=== PATIENT | female | born 1970 | race Caucasian/White ===

== ENCOUNTER 2017-02-04 08:51 | Emergency (ER) | payer BC, OTHER ==
[~2017-02-04] VITALS: Ht 165.1 cm; Wt 55.8 kg
[~2017-02-04 08:51] MED LIST: INSPMPNVLG; LEVOIUD INT UTER; MULTTAB58 PO
[2017-02-04 08:55] VITALS: TEMP 36.7; Ht 165.1 cm; Wt 55.8 kg
[2017-02-04] MEDS ORDERED: PRED20TA PO (09:40)
[2017-02-04] MEDS ORDERED: DEXAMETHASONE SOD INJ 10 MG/ML VIAL PO ONE (09:45)
[2017-02-04 09:56] VITALS: BP 116/77; PULSE 63; O2SAT 100
--- NOTE | 2017-02-04 16:37 | EMERGENCY ROOM VISIT NOTE ---
ED Visit Note First contact with patient: 09:09 CHIEF COMPLAINT: Skin problem. HISTORY OF PRESENT ILLNESS: Ms. Boggs is a 46-year-old white female who ambulates into the ED complaining of possible poison edita. Patient reports approximately one week ago she was picking strawberries behind her house and noted swelling and redness and a rash on both her hands and forearms. Over the last week this is spread and now includes her abdomen and legs. She reports that she has been using [id number] steroid cream and Benadryl cream without relief of her skin eruptions. Additionally she reports she has been using Benadryl with minimal relief of her itching. Associated with her skin eruption she does report she is having a mild burning sensation of the arms and in the area of her rash. She rates this discomfort 6/ 10. Her pain worsens with itching. She has not identified any alleviating factors related to the pain. She has not taken any medication for pain prior to arrival at the hospital. She denies any associated fevers, chills, sweats, upper respiratory tract symptoms, cough, wheezing, shortness of breath, sensations of throat swelling, voice changes, difficulty swallowing, decreased appetite, nausea/vomiting, extremity weakness/numbness/tingling. REVIEW OF SYSTEMS: As noted above in History of Present Illness; a body systems reviewed the patient and found to be negative unless noted above otherwise. PMH: Insulin-dependent diabetes, urinary tract infections, status post oophorectomy, bilateral mastectomy with recent reconstructive surgery. CURRENT MEDICATION: Insulin, multivitamins. ALLERGIES TO MEDICATION: Patient denies. SOCIAL HISTORY: Patient is not employed; she lives with her and feels safe in her home environment; she denies tobacco use and admits to alcohol use. PHYSICAL EXAM: Vital Signs: Date Time Temp Pulse Resp B/P (MAP) Pulse Ox O2 Delivery O2 Flow Rate FiO2 02/04/17 09:56 63 15 116/77 100 02/04/17 09:45 63 15 116/77 100 Room Air 02/04/17 08:55 36.7 78 16 114/75 99 Room Air GENERAL: 46-year-old female in mild distress due to symptoms, nontoxic-appearing , afebrile and hemodynamically stable. NEUROLOGICAL: Awake, alert and oriented to person, place and time. Answering questions appropriately and following commands. Normal gait. Good hand eye coordination. No focal motor or sensory deficits. SKIN: Warm, dry and pink. All Extremities: There is an erythematous linear eruptions on all the extremities. Some eruptions have small vesicles; predominantly on the hands, wrists, and volar aspect of the forearms. These areas are minimally warm to touch does not appear cellulitic. There is no lymphangitis. HEENT: Atraumatic and normocephalic. PERRLA. Sclera white and conjunctiva pink without drainage. No drainage from naris. Oral cavity moist and pink. Airway is patent. Pharynx is nonerythematous or edematous. Speech normal. No lymphadenopathy. No auditory or auscultatory stridor. THORAX: Lungs sounds are clear to auscultation and equal bilaterally with symmetrical chest wall. No wheezing, rales or rhonchi. ABDOMEN: Flat, soft and nontender. Positive bowel sounds in all quadrants. No guarding, rigidity or organomegaly. EXTREMITIES: Moves all extremities well on command and with purpose. All distal neurovascular statuses are intact and equal bilaterally. No calf tenderness or cords. ED COURSE: Patient is assessed as noted above. Patient's medication list was reviewed. Patient was given 10 mg of Decadron by mouth for her symptoms. Patient was educated about today's findings and instructed on her treatment plan ; she verbalizes understanding and agreement with this plan. CLINICAL IMPRESSION: Poison edita contact dermatitis. DISPOSITION: Patient discharged home in stable condition; prior to departure she was reassessed and subjectively reported she was pain-free but continued to have itching. PLAN: Patient was prescribed a prednisone taper. Patient was encouraged to use Benadryl and ranitidine and instructed on her use. Patient was encouraged to avoid hot baths and actually use ice bags over areas of severe itching. Patient was encouraged to follow-up with family physician for recheck when she returns from her upcoming trip for recheck. Patient was encouraged return to the ED for worsening symptoms, fevers, shortness of breath, sensations of throat swelling or any new/concerning symptoms.
== END 2017-02-04 09:57 | disposition home or self-care (01) ==
LOC: C.EDB 09:34
DX: L23.7 Allergic contact dermatitis due to plants, except food (principal); E11.9 Type 2 diabetes mellitus without complications; Z79.4 Long term (current) use of insulin; Z90.13 Acquired absence of bilateral breasts and nipples; Z90.721 Acquired absence of ovaries, unilateral; Z87.440 Personal history of urinary (tract) infections

== ENCOUNTER → 2017-08-18 | Outpatient (CLI) | payer BC ==
[~2017-08-18] MED LIST changes: -LEVOIUD INT UTER
== END | disposition home or self-care (01) ==
LOC: C.LAB 07:59
PROVIDERS: ATTEND Nutritionist
DX: R53.83 Other fatigue (principal)

== ENCOUNTER 2017-11-12 09:50 | Emergency (ER) | payer BC ==
[~2017-11-12] VITALS: Ht 165.1 cm; Wt 57.2 kg
[2017-11-12 09:55] VITALS: TEMP 36.5; Ht 165.1 cm; Wt 57.2 kg
[2017-11-12] MEDS ORDERED: KETOROLAC TROMETHAMINE 30 MG/ML VIAL IV STA (10:20)
--- NOTE | 2017-11-12 10:29 | EMERGENCY ROOM VISIT NOTE ---
History Report prepared by Anival: Hector Ball Under the Supervision of: Dr. Doroteo Gotti D.O. 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 The patient reports that a month ago she was working out and felt a pop in her lower back, and she states that she has been going to a chiropractor since then. She reports that she had an x-ray done two days ago, and she states that it showed a pars defect. The patient states that she has been having some numbness from the waist down, and she states that the pain occasionally goes down her legs. The patient notes that she has not had any pain like this in the past, and she is denying any abdominal pain. She states that she has a history of breast cancer, and she states that she does not think that it spread anywhere. She has a history of a mastectomy, breast reconstruction, and an oophorectomy 4 years ago. The patient additionally states that she has a history of diabetes. She reports that she usually has around one alcoholic drink per night. Source of History: patient Onset: a month ago Position: back (lower) Timing: worsening Modifying Factors (Worsening): movement Associated Symptoms: + numbness, No abdominal pain Note: Associated symptoms: Leg pain Review of Systems See HPI for pertinent positives & negatives. A total of 10 systems reviewed and were otherwise negative. Past Medical & Surgical Medical Problems: (1) History of breast cancer (2) History of UTI Surgical Problems: (1) History of mastectomy (2) History of oophorectomy Social History Smoking Status: Never Smoker Alcohol Use: none Drug Use: none Marital Status: Housing Status: lives with family Occupation Status: employed Current/Historical Medications Scheduled Fish Oil (Carson-3), 2 CAP PO QAM Insulin Aspart (novoLOG INSULIN PUMP ), 1 EA N/A UD Nitrofurantoin Monohyd Macrocr (Macrobid), Unknown Dose PO DAILY Ocuvite Preservision (Ocuvite Preservision), 2 TAB PO Q2D Ocuvite Preservision (Ocuvite Preservision), 1 TAB PO Q2D [Vitamin D Drops], 8 DROPS PO QAM Allergies Coded Allergies: Ciprofloxacin (Unverified Adverse Reaction, Intermediate, HIVES/ITCHING, ) Sulfamethoxazole w/Trimethoprim (Unverified Adverse Reaction, Intermediate , HIVES/ITCHING, 11/12/17) Physical Exam Vital Signs Date Time Temp Pulse Resp B/P (MAP) Pulse Ox O2 Delivery O2 Flow Rate FiO2 11/12/17 12:59 70 16 148/91 98 11/12/17 12:12 72 16 122/80 98 Room Air 11/12/17 09:55 36.5 85 18 123/86 97 Room Air Physical Exam GENERAL: Patient is awake, alert, and somewhat anxious appearing and uncomfortable. EYES: The conjunctivae are clear. The pupils are round and reactive. EARS, NOSE, MOUTH AND THROAT: The nose is without any evidence of any deformity. Mucous membranes are moist tongue is midline NECK: The neck is nontender and supple. RESPIRATORY: Normal respiratory effort is noted there is no evidence of wheezing rhonchi or rales CARDIOVASCULAR: Regular rate and rhythm noted there no murmurs rubs or gallops normal S1 normal S2 GASTROINTESTINAL: The abdomen is soft. Bowel sounds are present in all quadrants. Abdomen is nontender BACK: There was low lumbar spine tenderness to palpation. No flank tenderness was noted. Range of motion appeared intact but painful. MUSCULOSKELETAL/EXTREMITIES: There is no evidence of gross deformity full range of motion is noted in the hips and shoulders SKIN: There is no obvious evidence of any rash. There are no petechiae, pallor or cyanosis noted. NEUROLOGIC: Patient is awake alert and oriented x3 strength is symmetric in the lower extremities. Patellar reflexes are 1+ bilaterally. Achilles reflex absent bilaterally and great toe raise was symmetric. Medical Decision & Procedures ER Provider Diagnostic Interpretation: Radiology results as stated below per my review and radiologist interpretation: LUMBAR SPINE MRI WITH AND WITHOUT CONTRAST HISTORY: Back pain TECHNIQUE: Multiplanar multisequence MRI of the lumbar spine was performed both before and after the intravenous administration of contrast. COMPARISON: None. FINDINGS: For the purpose of the report the L5-S1 disc space will be located on axial image 27 of 30. No fracture or subluxation. The conus terminates at the T12-L1 disc space level. Paraspinal soft tissues are unremarkable. Disc spaces are relatively preserved. No abnormal enhancement within the lumbar spine. Within the left T12-L1 neural foramen there is a nonenhancing T2 hyperintense focus occupying the majority of the foramen. This favors a lateral thoracic meningocele and is considered to be a normal variant. L1-L2: No significant central canal or neural foraminal narrowing. L2-L3: There is a 13 x 11 x 5 mm left paracentral focal disc protrusion. This results in mild left-sided central canal narrowing and abuts the transiting left L3 nerve root. No significant neural foraminal narrowing. L3-L4: There is a 13 x 12 x 5 mm focal central disc protrusion resulting in mild central canal narrowing. No significant neural foraminal narrowing. L4-L5: Small focal central disc protrusion resulting in mild central canal narrowing. No significant neural foraminal narrowing. This disc protrusion abuts the transiting left L5 nerve root. L5-S1: Small focal central disc protrusion with mild inferior subligamentous migration. No significant central canal or neural foraminal narrowing. This disc protrusion abuts the bilateral transiting S1 nerve roots. IMPRESSION: 1. Focal disc protrusions from L2-L3 through L5-S1 as described above resulting in areas of mild central canal narrowing. Some of these disc protrusions abut the transiting nerve roots. 2. No fracture or subluxation. 3. No suspicious osseous lesions. Electronically signed by: Simeon Angeles M.D. 11/12/2017 12:27 PM Dictated Date/Time: 11/12/2017 12:18 PM Laboratory Results 11/12/17 10:30 Red Blood Count 4.87, Mean Corpuscular Volume 87.9, Mean Corpuscular Hemoglobin 30.8, Mean Corpuscular Hemoglobin Concent 35.0, Mean Platelet Volume 10.6, Neutrophils (%) (Auto) 49.0, Lymphocytes (%) (Auto) 39.0, Monocytes (%) (Auto) 8.1, Eosinophils (%) (Auto) 3.2, Basophils (%) (Auto) 0.5, Neutrophils # (Auto) 2.18, Lymphocytes # (Auto) 1.73, Monocytes # (Auto) 0.36, Eosinophils # (Auto) 0.14, Basophils # (Auto) 0.02 11/12/17 10:30 Test 11/12/17 00:00 11/12/17 10:30 Urine Color YELLOW Urine Appearance CLEAR (CLEAR) Urine pH 8.0 (4.5-7.5) Urine Specific [place] 1.009 (1.000-1.030) Urine Protein NEG (NEG) Urine Glucose (UA) NEG (NEG) Urine Ketones NEG (NEG) Urine Occult Blood NEG (NEG) Urine Nitrite NEG (NEG) Urine Bilirubin NEG (NEG) Urine Urobilinogen NEG (NEG) Urine Leukocyte Esterase SMALL (NEG) Urine WBC (Auto) 1-5 /hpf (0-5) Urine RBC (Auto) 0-4 /hpf (0-4) Urine Hyaline Casts (Auto) 0 /lpf (0-5) Urine Epithelial Cells (Auto) 10-20 /lpf (0-5) Urine Bacteria (Auto) NEG (NEG) White Blood Count 4.44 K/uL (4.8-10.8) Red Blood Count 4.87 M/uL (4.2-5.4) Hemoglobin 15.0 g/dL (12.0-16.0) Hematocrit 42.8 % (37-47) Mean Corpuscular Volume 87.9 fL (80-100) Mean Corpuscular Hemoglobin 30.8 pg (25-34) Mean Corpuscular Hemoglobin Concent 35.0 g/dl (32-36) Platelet Count 215 K/uL (130-400) Mean Platelet Volume 10.6 fL (7.4-10.4) Neutrophils (%) (Auto) 49.0 % Lymphocytes (%) (Auto) 39.0 % Monocytes (%) (Auto) 8.1 % Eosinophils (%) (Auto) 3.2 % Basophils (%) (Auto) 0.5 % Neutrophils # (Auto) 2.18 K/uL (1.4-6.5) Lymphocytes # (Auto) 1.73 K/uL (1.2-3.4) Monocytes # (Auto) 0.36 K/uL (0.11-0.59) Eosinophils # (Auto) 0.14 K/uL (0-0.5) Basophils # (Auto) 0.02 K/uL (0-0.2) RDW Standard Deviation 42.3 fL (36.4-46.3) RDW Coefficient of Variation 13.2 % (11.5-14.5) Immature Granulocyte % (Auto) 0.2 % Immature Granulocyte # (Auto) 0.01 K/uL (0.00-0.02) Prothrombin Time 10.9 SECONDS (9.0-12.0) Prothromb Time International Ratio 1.0 (0.9-1.1) Activated Partial Thromboplast Time 24.7 SECONDS (21.0-31.0) Partial Thromboplastin Ratio 1.0 Anion Gap 5.0 mmol/L (3-11) Est Creatinine Clear Calc Drug Dose 76.2 ml/min Estimated GFR () 98.0 Estimated GFR (Non- 84.6 BUN/Creatinine Ratio 14.4 (10-20) Calcium Level 9.5 mg/dl (8.5-10.1) Total Bilirubin 0.8 mg/dl (0.2-1) Direct Bilirubin 0.2 mg/dl (0-0.2) Aspartate Amino Transf (AST/SGOT) 19 U/L (15-37) Alanine Aminotransferase (ALT/SGPT) 33 U/L (12-78) Alkaline Phosphatase 85 U/L (45-117) Total Protein 7.5 gm/dl (6.4-8.2) Albumin 4.3 gm/dl (3.4-5.0) Human Chorionic Gonadotropin, Qual POS (NEG) Human Chorionic Gonadotropin, Quant 5 mIU/mL Laboratory results per my review. Medications Administered Medications (Trade) Dose Ordered Sig/Enrique Route Start Time Stop Time Status Last Admin Dose Admin Ketorolac Tromethamine (Toradol Inj) 10 mg NOW STAT IV 11/12/17 10:20 11/12/17 10:22 DC 11/12/17 10:30 10 MG ED Course 1006: The patient was evaluated in room C4. A complete history and physical examination were performed. 1020: Toradol 10mg IV 1236: Upon reevaluation, the patient is doing well. I discussed the results and treatment plan with her. She verbalized agreement of the treatment plan. She was discharged home. Medical Decision Differential diagnosis: Etiologies such as musculoskeletal, disc herniation, fracture, aortic disease, metastatic disease, cord compression, discitis, infection, renal colic, gastrointestinal, acute exacerbation of chronic back pain, sciatica, cauda equina, as well as others were entertained. Nursing notes reviewed. The patient is a 47-year-old female who presented to the emergency department for an evaluation of low back pain. The patient states that she was doing cross fit when she noticed an acute onset of low back pain. She notices some radicular symptoms as well. She was seen by her chiropractor and sent for x- rays. The x-ray reports are not available here but she states that she was noted to have a pars defect. She has a history of breast cancer which was not known to be metastatic at any time. The patient's exam was consistent with significant pain. For this reason I felt an MRI would be appropriate especially given the patient's remote breast cancer history. The patient did not wish to have any steroids because of her history of diabetes. I discussed patient's laboratory and radiographic studies with her. At this time no definite surgical lesion was noted. I offered to discuss her MRI findings with an on-call orthopedic field identification specialist but she wished to discuss this with family members first. She was encouraged to rest and avoid any strenuous activity. She was also encouraged to continue using Motrin and Tylenol for pain. I also recommended that she return to the emergency department immediately if symptoms change worsen or the need arises. She was given a copy of her MRI report. Medication Reconcilliation Current Medication List: was personally reviewed by me Blood Pressure Screening Patient's blood pressure: Normal blood pressure Impression Primary Impression: Lumbar radiculopathy Scribe Attestation The scribe's documentation has been prepared under my direction and personally reviewed by me in its entirety. I confirm that the note above accurately reflects all work, treatment, procedures, and medical decision making performed by me. Departure Information Dispostion Home / Self-Care Referrals Michael Heard M.D.(LEAH) (PCP) Forms HOME CARE DOCUMENTATION FORM, IMPORTANT VISIT INFORMATION Patient Instructions Lumbar Radiculopathy, My [facility] Additional Instructions Call to schedule a follow-up appointment with a field identification specialist. Rest and avoid any strenuous activity. Continue using Motrin and Tylenol as directed for pain. Return to the emergency department immediately if symptoms change worsen or the need arises.
[2017-11-12 10:36] LABS: BASO % 0.5 %; BASO ABS # 0.02 K/uL (0-0.2); EOS % 3.2 %; EOS ABS # 0.14 K/uL (0-0.5); HEMATOCRIT 42.8 % (37-47); IG# 0.01 K/uL (0.00-0.02); LYMPH ABS # 1.73 K/uL (1.2-3.4); MEAN CELL VOLUME 87.9 fL (80-100); MEAN CORPUSCULAR HEMOGLOBIN 30.8 pg (25-34); MEAN PLATELET VOLUME 10.6 fL (7.4-10.4); MONO % 8.1 %; MONO ABS # 0.36 K/uL (0.11-0.59); NEUT ABS # 2.18 K/uL (1.4-6.5); PLATELET COUNT 215 K/uL (130-400); RED CELL DISTRIBUTION WIDTH CV 13.2 % (11.5-14.5); RED CELL DISTRIBUTION WIDTH SD 42.3 fL (36.4-46.3); WHITE BLOOD COUNT 4.44 K/uL (4.8-10.8)
[2017-11-12] MEDS ORDERED: MULT-190 PO (10:38)
[2017-11-12] MEDS ORDERED: OMEG10007 PO (10:41)
[2017-11-12] MEDS ORDERED: VITAMIN D DROPS PO (10:41)
[2017-11-12 10:45] LABS: PTT PATIENT 24.7 SECONDS (21.0-31.0)
[2017-11-12 10:53] LABS: ALBUMIN 4.3 gm/dl (3.4-5.0); CALCIUM 9.5 mg/dl (8.5-10.1); CREATININE 0.83 mg/dl (0.60-1.20)
[2017-11-12 10:56] LABS: TOTAL PROTEIN 7.5 gm/dl (6.4-8.2)
[2017-11-12] MEDS ORDERED: NITR-5 PO (11:04)
[2017-11-12] MEDS ORDERED: GADAVIST IV PRN (12:00)
--- NOTE | 2017-11-12 12:29 | DIAGNOSTIC IMAGING REPORT ---
LUMBAR SPINE MRI WITH AND WITHOUT CONTRAST HISTORY: Back pain TECHNIQUE: Multiplanar multisequence MRI of the lumbar spine was performed both before and after the intravenous administration of contrast. COMPARISON: None. FINDINGS: For the purpose of the report the L5-S1 disc space will be located on axial image 27 of 30. No fracture or subluxation. The conus terminates at the T12-L1 disc space level. Paraspinal soft tissues are unremarkable. Disc spaces are relatively preserved. No abnormal enhancement within the lumbar spine. Within the left T12-L1 neural foramen there is a nonenhancing T2 hyperintense focus occupying the majority of the foramen. This favors a lateral thoracic meningocele and is considered to be a normal variant. L1-L2: No significant central canal or neural foraminal narrowing. L2-L3: There is a 13 x 11 x 5 mm left paracentral focal disc protrusion. This results in mild left-sided central canal narrowing and abuts the transiting left L3 nerve root. No significant neural foraminal narrowing. L3-L4: There is a 13 x 12 x 5 mm focal central disc protrusion resulting in mild central canal narrowing. No significant neural foraminal narrowing. L4-L5: Small focal central disc protrusion resulting in mild central canal narrowing. No significant neural foraminal narrowing. This disc protrusion abuts the transiting left L5 nerve root. L5-S1: Small focal central disc protrusion with mild inferior subligamentous migration. No significant central canal or neural foraminal narrowing. This disc protrusion abuts the bilateral transiting S1 nerve roots. IMPRESSION: 1. Focal disc protrusions from L2-L3 through L5-S1 as described above resulting in areas of mild central canal narrowing. Some of these disc protrusions abut the transiting nerve roots. 2. No fracture or subluxation. 3. No suspicious osseous lesions. Electronically signed by: Simeon Angeles M.D. 11/12/2017 12:27 PM Dictated Date/Time: 11/12/2017 12:18 PM
[2017-11-12 12:59] VITALS: BP 148/91; PULSE 70; O2SAT 98
== END 2017-11-12 13:02 | disposition home or self-care (01) ==
LOC: C.EDB 09:54 → C.EDC 13:02
DX: M54.16 Radiculopathy, lumbar region (principal); Z85.3 Personal history of malignant neoplasm of breast; Z90.10 Acquired absence of unspecified breast and nipple; Z90.722 Acquired absence of ovaries, bilateral; E11.9 Type 2 diabetes mellitus without complications; Z87.440 Personal history of urinary (tract) infections; Z96.41 Presence of insulin pump (external) (internal); Z79.4 Long term (current) use of insulin; Z79.899 Other long term (current) drug therapy; Z88.1 Allergy status to other antibiotic agents; Z88.2 Allergy status to sulfonamides